=== PATIENT | female | born 1945 | race Caucasian/White ===

== ENCOUNTER 2017-02-12 15:26 | Emergency (ER) | payer MEDICARE ==
[2017-02-12 08:00] VITALS: O2SAT 96
[~2017-02-12 15:26] MED LIST: CALC-137 PO; CO Q100C9 PO; DYAZ37.52 PO; LEVO112T2 PO; LORTA10 PO; METO50TA PO; PRAV40TA PO; SULF1TAB47 PO; TAB-TAB PO; VITA100020 SL; VITA20003 PO; [UNRECOGNIZED DRUG - OTHER] PO
[2017-02-12 15:40] VITALS: BP 127/65; PULSE 67; RESP 26; TEMP 97.4; O2SAT 92
[2017-02-12] MEDS ORDERED: ONDANSETRON HCL 4 MG/2 ML VIAL IV PUSH ONE (16:00)
[2017-02-12] MEDS ORDERED: MORPHINE SULFATE 4 MG/ML INJ IV PUSH ONE (16:00)
--- NOTE | 2017-02-12 16:00 | PD ---
HPI Chief Complaint: Fall Time Seen by Provider: 15:50 Travel History International Travel<30 days: No Contact w/Intl Traveler<30days: No Traveled to known affect area: No History of Present Illness HPI 71-year-old female presents via EMS for evaluation of left shoulder injury. Prior to arrival the patient tripped on a curb and fell, landing on her left shoulder. She is complaining of left shoulder pain, moderate, aching, aggravated by any sort of movement. She has an abrasion to the anterior left knee as well which is minimally painful. Denies any head trauma or loss of consciousness. Denies any neck pain, back pain, chest pain or shortness of breath, abdominal pain, numbness or tingling or weakness. She is no other complaints. 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) Psychiatric: No Reproductive: No Respiratory: No Migraines: Yes Past Surgical History Body Medical Devices: CHIIP LEFT BREAST Pacemaker: No Thoracic Surgery: Yes (BENIGN TUMOR LEFT BREAST, CHIP INSERTED L BREAST) Social History Tobacco Use: No Allergies-Medications (Allergen,Severity, Reaction): Coded Allergies: Morphine (Verified Allergy, Unknown, 02/12/17) Reported Meds & Prescriptions Reported Meds & Active Scripts Active Ibuprofen 800 Mg Tab 800 Mg PO Q6HR PRN 7 Days Reported D3 (Cholecalciferol) 2,000 Unit Tab 2,000 Units PO HS Coq-10 Tr (Coenzyme Q10 (Ubidecarenone)) 100 Mg Cap 100 Mg PO HS Levothyroxine (Levothyroxine Sodium) 112 Mcg Tab 112 Mcg PO DAILY Toprol XL (Metoprolol Succinate) 50 Mg Tab 50 Mg PO BID B-12 (Cyanocobalamin) 5,000 Mcg Subl 5,000 Mcg SL DAILY Pravastatin 40 Mg Tab 40 Mg PO HS Dyazide (Triamterene-Hydrochlorothiazide) 37.5-25 Mg Cap 1 Cap PO DAILY Fish Oil 1200 mg ([place]-3 Fatty Acids) 1 Cap Cap 2,400 Mg PO BID Probiotic (Lactobacillus Acidophilus) 1 Cap Cap 1 Cap PO HS Ibuprofen 800 Mg Tab 800 Mg PO BID PRN Cranberry (Cranberry (Vaccinium Macrocarpon)) 500 Mg Cap 500 Mg PO HS Review of Systems Except as stated in HPI: all other systems reviewed are Neg Physical Exam Narrative GENERAL: Well-developed well-nourished female who appears uncomfortable on initial examination. SKIN: Warm and dry. Abrasion to the anterior left knee. HEAD: Atraumatic. Normocephalic. EYES: Pupils equal and round. No scleral icterus. No injection or drainage. ENT: No nasal bleeding or discharge. Mucous membranes pink and moist. NECK: Trachea midline. No JVD. CARDIOVASCULAR: Regular rate and rhythm. No murmur appreciated. RESPIRATORY: No accessory muscle use. Clear to auscultation. Breath sounds equal bilaterally. GASTROINTESTINAL: Abdomen soft, non-tender, nondistended. Hepatic and splenic margins not palpable. MUSCULOSKELETAL: Tenderness to palpation to the left glenohumeral joint, left shoulder is in a sling. 2+ radial pulse, capillary refill less than 2 seconds all digits left hand. NEUROLOGICAL: Awake and alert. No obvious cranial nerve deficits. Motor grossly within normal limits. Normal speech. Data Data Last Documented VS Vital Signs Date Time Temp Pulse Resp B/P Pulse Ox O2 Delivery O2 Flow Rate FiO2 02/12/17 19:12 62 18 155/78 95 Nasal Cannula 2 02/12/17 15:40 97.4 Orders Shoulder, Limited(2vws) (02/12/17 ) Morphine Inj (Morphine Inj) (02/12/17 16:00) Ondansetron Inj (Zofran Inj) (02/12/17 16:00) Hydromorphone Pf Inj (Dilaudid Pf Inj) (02/12/17 17:00) Lidocaine Pf 1% Inj (Xylocaine-Mpf 1% In (02/12/17 17:15) Chest, Single Ap (02/12/17 ) Propofol 1000 Mg/100 Ml Inj (Diprivan 10 (02/12/17 17:54) Sling And Swathe (02/12/17 ) Ketamine Inj (Ketalar Inj) (02/12/17 18:00) Shoulder, Limited(2vws) (02/12/17 ) Ondansetron Inj (Zofran Inj) (02/12/17 18:15) Ct Thorax/ Chest W Iv Contrast (02/12/17 ) Complete Blood Count With Diff (02/12/17 18:09) Basic Metabolic Panel (Bmp) (02/12/17 18:09) Act Partial Throm Time (Ptt) (02/12/17 18:09) Prothrombin Time / Inr (Pt) (02/12/17 18:09) Sling And Swathe (02/12/17 ) Iohexol 350 Inj (Omnipaque 350 Inj) (02/12/17 19:33) Labs Laboratory Tests Test 02/12/17 18:30 White Blood Count 10.5 TH/MM3 Red Blood Count 4.18 MIL/MM3 Hemoglobin 12.9 GM/DL Hematocrit 38.8 % Mean Corpuscular Volume 92.8 FL Mean Corpuscular Hemoglobin 30.8 PG Mean Corpuscular Hemoglobin 33.2 % Concent Red Cell Distribution Width 14.4 % Platelet Count 169 TH/MM3 Mean Platelet Volume 8.5 FL Neutrophils (%) (Auto) 86.1 % Lymphocytes (%) (Auto) 7.3 % Monocytes (%) (Auto) 5.8 % Eosinophils (%) (Auto) 0.2 % Basophils (%) (Auto) 0.6 % Neutrophils # (Auto) 9.1 TH/MM3 Lymphocytes # (Auto) 0.8 TH/MM3 Monocytes # (Auto) 0.6 TH/MM3 Eosinophils # (Auto) 0.0 TH/MM3 Basophils # (Auto) 0.1 TH/MM3 CBC Comment DIFF FINAL Differential Comment Prothrombin Time 10.7 SEC Prothromb Time International 1.0 RATIO Ratio Activated Partial 21.9 SEC Thromboplast Time Sodium Level 143 MEQ/L Potassium Level 4.3 MEQ/L Chloride Level 110 MEQ/L Carbon Dioxide Level 27.2 MEQ/L Anion Gap 6 MEQ/L Blood Urea Nitrogen 23 MG/DL Creatinine 1.13 MG/DL Estimat Glomerular Filtration 47 ML/MIN Rate Random Glucose 148 MG/DL Calcium Level 9.1 MG/DL [facility] Medical Decision Making Medical Screen Exam Complete: Yes Emergency Medical Condition: Yes Medical Record Reviewed: Yes Interpretation(s) Chest x-ray CONCLUSION: 1. Inferior dislocation of the left humeral head. It is located in a subcoracoid position. 2. Underinflated exam with atelectasis at the bases and opacity in the medial right upper lung zone which may represent atelectasis or airspace consolidation. Left shoulder x-ray reveals an anterior shoulder dislocation Differential Diagnosis Shoulder dislocation, proximal humeral fracture, contusion, strain Narrative Course 71-year-old female left shoulder pain after fall. She was in a sling was provided via EMS. She has an abrasion to the left elbow and left knee. Plan is for x-ray imaging left shoulder. She was given morphine and Zofran. Upon reexamination showed persistent and so she was given 0.5 mg of Dilaudid. Upon reexamination after the sling was removed she was found to have some pain in the left lateral rib cage. Her oxygen saturation was intermittently in the low 90s/80s and therefore chest x-ray is being ordered. Chest x-ray reveals underinflation with some atelectasis versus consolidation in the medial right upper lung zone. Therefore CT of the thorax has been ordered. CT imaging reveals edema versus hemorrhage and left axillary region likely related to recent dislocation. The axillary artery demonstrates no acute abnormality. Upon reexamination there is no ecchymosis or hematoma or evidence of hemarthrosis. There is no evidence of fracture and the CT. There is evidence of a chronic rotator cuff tear. Upon examination the patient's pain is essentially minimal. She has no shortness of breath. She is able to ambulate and her oxygen saturations are in the mid 90s on room air. She is stable for discharge, sling and swath are in place. Diagnosis Primary Impression: Dislocation of left shoulder joint Qualified Code: S43.005A - Dislocation of left shoulder joint, initial encounter Additional Impressions: Contusion, chest wall Qualified Code: S20.212A - Contusion, chest wall, left, initial encounter Abrasion, left knee, initial encounter Referrals: Scar Vazquez Jr., MD Additional Instructions: Sling. Ibuprofen for pain. Follow-up with an orthopedist such as Dr. Vazquez in the next week. Return for any emergent medical conditions. Med/Other Pt SpecificInfo: Prescription(s) given, Orthopedic Instructions Scripts Ibuprofen 800 Mg [id number] Mg PO Q6HR PRN (PAIN) 7 Days Ref 0 Prov:Radha Burns MD 02/12/17 Disposition: 01 DISCHARGE HOME Condition: Stable Jack Weeks Feb 12, 2017 16:00
[2017-02-12 16:10] VITALS: BP 161/74; PULSE 61; RESP 18; O2SAT 92
[2017-02-12] MEDS ORDERED: HYDROmorphone HCL PF 1 MG/ML VIAL IV PUSH ONE (17:00)
[2017-02-12] MEDS ORDERED: LIDOCAINE HCL 1% PF 30 ML VIAL INFIL ONE (17:15)
--- NOTE | 2017-02-12 17:28 | RADRPT ---
EXAM DATE/TIME: 02/12/2017 16:33 [facility] COMPARISON: No previous studies available for comparison. INDICATIONS : Pain status post fall today. Left shoulder pain. MEDICAL HISTORY : None. SURGICAL HISTORY : None. ENCOUNTER: Initial ACUITY: 1 day PAIN SCORE: 10/10 LOCATION: Left Shoulder FINDINGS: Two view examination of the left shoulder demonstrates an anterior humeral head dislocation. A fractu re is not seen. The acromioclavicular joint is aligned. CONCLUSION: Anterior humeral head dislocation. Malachi Sebastian MD on February 12, 2017 at 17:25 Board Certified Radiologist. This report was verified electronically.
[2017-02-12] MEDS ORDERED: PROPOFOL 1000 MG/100 ML BTL IV STA (17:54)
[2017-02-12 18:00] VITALS: O2SAT 96
[2017-02-12] MEDS ORDERED: KETAMINE HCL 500 MG/5 ML VIAL IV PUSH ONE (18:00)
[2017-02-12 18:01] VITALS: BP 161/74; PULSE 59; RESP 16; O2SAT 96
--- NOTE | 2017-02-12 18:08 | RADRPT ---
EXAM DATE/TIME: 02/12/2017 17:46 [facility] COMPARISON: No previous studies available for comparison. INDICATIONS : Left sided chest pain post fall today MEDICAL HISTORY : None. SURGICAL HISTORY : None. ENCOUNTER: Initial ACUITY: 1 day PAIN SCORE: 10/10 LOCATION: Left chest FINDINGS: Underinflated AP view of the chest demonstrates a normal-sized cardiac silhouette. There is not atele ctasis at the lung bases. There is opacity in the medial right upper lung zone. No pneumothorax or pl eural effusion is visualized. There is inferior dislocation of the left humeral head. No CONCLUSION: 1. Inferior dislocation of the left humeral head. It is located in a subcoracoid position. 2. Underinflated exam with atelectasis at the bases and opacity in the medial right upper lung zone w hich may represent atelectasis or airspace consolidation. Malachi Fernandez MD on February 12, 2017 at 18:04 Board Certified Radiologist. This report was verified electronically.
[2017-02-12] MEDS ORDERED: ONDANSETRON HCL 4 MG/2 ML VIAL IV ONE (18:15)
[2017-02-12 18:40] LABS: AUTOMATED NEUTROPHIL # 9.1 TH/MM3 (1.8-7.7); BASOPHIL # 0.1 TH/MM3 (0-0.2); BASOPHIL % 0.6 % (0.0-2.0); EOSINOPHIL % 0.2 % (0.0-4.0); HEMATOCRIT 38.8 % (35.0-46.0); HEMO FLAGS DIFF FINAL; LYMPH % 7.3 % (9.0-44.0); LYMPHOCYTE # 0.8 TH/MM3 (1.0-4.8); MEAN CELL VOLUME 92.8 FL (80.0-100.0); MEAN CORPUSCULAR HEMOGLOBIN 30.8 PG (27.0-34.0); MEAN CORPUSCULAR HGB CONC 33.2 % (32.0-36.0); MONO % 5.8 % (0.0-8.0); NEUT % 86.1 % (16.0-70.0); PLATELET COUNT 169 TH/MM3 (150-450); RED BLOOD COUNT 4.18 MIL/MM3 (4.00-5.30); RED CELL DISTRIBUTION WIDTH 14.4 % (11.6-17.2); WHITE BLOOD COUNT 10.5 TH/MM3 (4.0-11.0)
[2017-02-12] MEDS ORDERED: PRAV40TA2 PO (18:41)
[2017-02-12] MEDS ORDERED: COQ-100C5 PO (18:41)
[2017-02-12] MEDS ORDERED: DYAZ37.5 PO (18:41)
[2017-02-12] MEDS ORDERED: D32000TA PO (18:41)
[2017-02-12] MEDS ORDERED: TOPR50TA PO (18:41)
[2017-02-12] MEDS ORDERED: CYAN1SUB SL (18:41)
[2017-02-12] MEDS ORDERED: IBUP800T23 PO ×2 (18:41→20:06)
[2017-02-12] MEDS ORDERED: CRAN500C2 PO (18:41)
[2017-02-12] MEDS ORDERED: LACTCAP8 PO (18:41)
[2017-02-12] MEDS ORDERED: LEVO112T2 PO (18:41)
[2017-02-12] MEDS ORDERED: FISH1200 PO (18:41)
[2017-02-12 18:48] LABS: APTT (PATIENT) 21.9 SEC (24.3-30.1); PROTHROMBIN TIME - PATIENT 10.7 SEC (9.8-11.6)
--- NOTE | 2017-02-12 18:50 | PD ---
Data Data Last Documented VS Vital Signs Date Time Temp Pulse Resp B/P Pulse Ox O2 Delivery O2 Flow Rate FiO2 02/12/17 18:01 59 16 161/74 96 Nasal Cannula 2 02/12/17 15:40 97.4 Orders Shoulder, Limited(2vws) (02/12/17 ) Morphine Inj (Morphine Inj) (02/12/17 16:00) Ondansetron Inj (Zofran Inj) (02/12/17 16:00) Hydromorphone Pf Inj (Dilaudid Pf Inj) (02/12/17 17:00) Lidocaine Pf 1% Inj (Xylocaine-Mpf 1% In (02/12/17 17:15) Chest, Single Ap (02/12/17 ) Propofol 1000 Mg/100 Ml Inj (Diprivan 10 (02/12/17 17:54) Sling And Swathe (02/12/17 ) Ketamine Inj (Ketalar Inj) (02/12/17 18:00) Shoulder, Limited(2vws) (02/12/17 ) Ondansetron Inj (Zofran Inj) (02/12/17 18:15) Ct Thorax/ Chest W Iv Contrast (02/12/17 ) Complete Blood Count With Diff (02/12/17 18:09) Basic Metabolic Panel (Bmp) (02/12/17 18:09) Act Partial Throm Time (Ptt) (02/12/17 18:09) Prothrombin Time / Inr (Pt) (02/12/17 18:09) Sling And Swathe (02/12/17 ) Labs Laboratory Tests Test 02/12/17 18:30 White Blood Count 10.5 TH/MM3 Red Blood Count 4.18 MIL/MM3 Hemoglobin 12.9 GM/DL Hematocrit 38.8 % Mean Corpuscular Volume 92.8 FL Mean Corpuscular Hemoglobin 30.8 PG Mean Corpuscular Hemoglobin 33.2 % Concent Red Cell Distribution Width 14.4 % Platelet Count 169 TH/MM3 Mean Platelet Volume 8.5 FL Neutrophils (%) (Auto) 86.1 % Lymphocytes (%) (Auto) 7.3 % Monocytes (%) (Auto) 5.8 % Eosinophils (%) (Auto) 0.2 % Basophils (%) (Auto) 0.6 % Neutrophils # (Auto) 9.1 TH/MM3 Lymphocytes # (Auto) 0.8 TH/MM3 Monocytes # (Auto) 0.6 TH/MM3 Eosinophils # (Auto) 0.0 TH/MM3 Basophils # (Auto) 0.1 TH/MM3 CBC Comment DIFF FINAL Differential Comment Prothrombin Time 10.7 SEC Prothromb Time International 1.0 RATIO Ratio Activated Partial 21.9 SEC Thromboplast Time MDM Supervised Visit with ANDER: Yes Narrative Course The history, exam, and medical decision-making in the associated midlevel provider note were completed with my assistance. I reviewed and agree with the findings presented. I attest that I had a [id number] encounter with the patient on the same day, and personally performed and documented my assessment and findings in the medical record. *My assessment and Findings: This is a 71-year-old female who had a mechanical fall injuring her left shoulder. Patient has evidence of a shoulder dislocation on x-ray. Patient was slightly hypoxic and was also reporting some pain in her left rib cage. Chest x-ray doesn't demonstrate a pneumothorax but she may have a rib contusion or rib fracture. I was hesitant to perform conscious sedation given her hypoxia so we made several attempts at reducing the shoulder awake which were unsuccessful. Ultimately we decided to perform a conscious sedation with ketamine which went very well. CT imaging will be obtained of the chest to evaluate for occult pneumothorax. Procedures Procedure Narrative After the risks and benefits were discussed the following procedure was performed: MODERATE SEDATION: The patient was placed on a cardiac surgeon and pulse oximetry. An ambu bag and suction was immediately available at bedside. The patient was monitored by the nurse. Oxygen saturation, heart rate and blood pressure were monitored. Procedural sedation was acheived using 80 mg of IV ketamine. The patient was observed until awake and alert. Procedural Sedation time in attendance was 20 minutes. Shoulder reduction: Shoulder dislocation was reduced using traction countertraction technique. Patient had a normal neurovascular exam following procedure. Intra-articular injection: 15 cc of 1% lidocaine were injected into the joint in the posterior lateral joint space. Pt. tolerated procedure well. Radha Burns MD Feb 12, 2017 18:50
[2017-02-12 19:00] LABS: BICARBONATE 27.2 MEQ/L (21.0-32.0); POTASSIUM 4.3 MEQ/L (3.5-5.1)
[2017-02-12 19:12] VITALS: BP 155/78; PULSE 62; RESP 18; O2SAT 95
--- NOTE | 2017-02-12 19:13 | RADRPT ---
EXAM DATE/TIME: 02/12/2017 18:44 [facility] COMPARISON: SHOULDER LEFT LTD (2VWS), February 12, 2017, 16:33. INDICATIONS : Post left shoulder reduction. MEDICAL HISTORY : None. SURGICAL HISTORY : None. ENCOUNTER: Subsequent ACUITY: 1 day PAIN SCORE: 7/10 LOCATION: Left shoulder. FINDINGS: 3 views of the left shoulder following reduction demonstrates humeral head normal oriented to the gle noid fossa. There is elevation of the humeral head in relationship to the undersurface of the acromio n. No soft tissue abnormality is visualized. CONCLUSION: 1. The dislocated left humeral head has been reduced. 2. Abnormal elevation of the left humeral head diagnostic of a chronic rotator cuff tear. Malachi Fernandez MD on February 12, 2017 at 19:09 Board Certified Radiologist. This report was verified electronically.
[2017-02-12] MEDS ORDERED: IOHEXOL 350 MG/ML 10 ML VIAL (for RAD DIAG) IV ONE (19:33)
--- NOTE | 2017-02-12 19:50 | RADRPT ---
EXAM DATE/TIME: 02/12/2017 19:25 [facility] COMPARISON: CHEST SINGLE AP, February 12, 2017, 17:46. INDICATIONS : Trauma, fall. Left side chest pain. IV CONTRAST: 70 cc Omnipaque 350 (iohexol) IV RADIATION DOSE: 8.16 CTDIvol (mGy) MEDICAL HISTORY : Hypertension. SURGICAL HISTORY : None. ENCOUNTER: Initial ACUITY: 1 day PAIN SCALE: 7/10 LOCATION: Left chest TECHNIQUE: Volumetric scanning of the chest was performed. Using automated exposure control and adjustment of t he mA and/or kV according to patient size, radiation dose was kept as low as reasonably achievable to obtain optimal diagnostic quality images. FINDINGS: LUNGS: There is no consolidation or pneumothorax. No concerning pulmonary nodule is visualized. There is de pendent atelectasis bilaterally. As azygous fissure is present. PLEURA: There is no pleural thickening or pleural effusion. MEDIASTINUM: The heart and great vessels demonstrate no acute abnormality. Coronary artery calcification is presen t. Descending thoracic aorta is tortuous. There is no mediastinal or hilar lymphadenopathy. AXILLAE: There is edema versus hemorrhage in the left axillary fat. No lymphadenopathy is visualized. SKELETAL: There are degenerative changes of the spine but no fracture is identified. There is elevation of the left humeral head in relationship to the undersurface of the acromion. MISCELLANEOUS: The visualized upper abdominal organs demonstrate no acute abnormality. A small hiatal hernia is pres ent. CONCLUSION: 1. There is edema versus hemorrhage in the left axillary region likely related to the recent dislocat ion. The axillary artery demonstrates no acute abnormality. Axillary vein is not visualized. 2. No fracture is identified. There is elevation of the left humeral head diagnostic of a chronic rot ator cuff tear. 3. Nonacute findings include small hiatal hernia and coronary artery calcification. Malachi Fernandez MD on February 12, 2017 at 19:43 Board Certified Radiologist. This report was verified electronically.
== END 2017-02-12 20:29 | disposition home or self-care (01) ==
LOC: NEPE 15:26
DX: S43.035A Inferior dislocation of left humerus, initial encounter (principal); S80.212A Abrasion, left knee, initial encounter; R09.02 Hypoxemia; R07.89 Other chest pain; E78.00 Pure hypercholesterolemia, unspecified; W01.0XXA Fall on same level from slipping, tripping and stumbling without subsequent striking against object, initial encounter; Z79.1 Long term (current) use of non-steroidal anti-inflammatories (NSAID); Z79.899 Other long term (current) drug therapy
CPT/HCPCS: 23650; 71010; 71260; 73030; 80048; 85025; 85610; 85730; 96374; 96375; 96376; 99152; 99285; J1170; J2270; J2405; Q9967